=== PATIENT | male | born 1965 ===

== ENCOUNTER 2023-08-15 08:00 | Outpatient (RCR) | payer OTHER, SELFPAY ==
[2023-05-28 08:04] VITALS: BP 119/75; PULSE 70
--- NOTE | 2023-05-28 09:09 | MHC.PT.EP ---
[facility] [place] [facility] [place] [facility] [place] [facility] [address] Yeimi Pérez [address] [phone] F: [phone] F: [phone] F: [phone] F: [phone] Physical Therapy Plan of Care Date of Evaluation: Date of Surgery: NA Diagnosis: Vertigo Assessment: Mike plasencia a 57 year old male referred to PT for vertigo . He reports of having symptoms of room spinning dizziness with rolling to the R and looking up for over a year. In addition he also reports of having dizziness like he is passing out after running up hill or doing push ups. His symptoms of room spinning lasts for about a minute. His dizziness from exercises can last for a few minutes to few hours. He denies having nausea. On PT examination he presents with intact saccades, visual tracking, smooth pursuit and negative VBI. He was positive for downbeating nystagmus and R cast[place] pike. No BPPV symptoms noted in L castell[place] pike and B roll test. He lives with his and is independent with ADLS but avoids rolling to the R. He works as a prosecuting attorney. He would benefit from skilled PT to address the aforementioned impairments and improve tolerance to functional activities. Frequency and Duration: The patient will be seen 2/week for 4 weeks Short Term Goals: 1. Pt will be negative for nystagmus or reports of vertigo in all diagnostic positions bilaterally to resolution of BPPV in 2 weeks. 2. Patient to be able to functionally move in all planes and directions without provocation of dizziness to show return to PLOF in 2 weeks. Draw Furnace Tender Goals: 1. Pt will deny having dizziness with running up hill and push ups in 4 weeks. 2. Patient to be educated on symptoms and indications to return to therapy when needed min 4 weeks. Treatment Plan: Modalities to reduce pain, spasms and effusion. Manual therapy to restore motion and function. Therapeutic exercise to improve strength and flexibility. Neuromuscular re-education for posture and balance. Therapeutic activities to return to functional activities of daily living. Electronically signed by: Chacha Moya PT DPT Please sign and return to therapist. Thank you for your referral.
--- NOTE | 2023-09-14 13:47 | MHC.PT.DC ---
[facility] [place] [facility] [place] [facility] [place] [facility] [address] Yeimi Pérez [address] [phone] F: [phone] F: [phone] F: [phone] F: [phone] Physical Therapy Discharge Report Diagnosis: Vertigo Date of Surgery: NA Date of Evaluation: 05/28/23 Date of Discharge: 09/14/23 Treatments to Date: 7 Cancellations to Date: 0 No Shows to Date: 1 Discharge Status: Achieved Goals Improved Function Independent with HEP Discharge Summary: Mike completed 7 PT visits and has achieved all goals set for him. He is therefore being d/c from PT. Electronically signed by: Chacha Moya, PT DPT Please sign and return to therapist. Thank you for your referral.
== END 2023-09-14 13:47 | disposition home or self-care (01) ==
LOC: HO.PT 08:00
PROVIDERS: PCP Internal Medicine; Visit Provider Otolaryngology
DX: R42 Dizziness and giddiness (principal)
CPT/HCPCS: 95992; 97112; 97161